=== PATIENT | male | born 1975 | race Native Hawaiian/Other Pacific Islander ===

== ENCOUNTER 2018-07-16 14:33 | Inpatient (IN) | payer OTHER ==
[~2018-07-16] VITALS: Ht 175.3 cm; Wt 97.3 kg
[2018-07-16] VITALS (11 sets, daily range): BP systolic 85–122; BP diastolic 39–75; TEMP 97.9–100.8; Ht 175.3 cm; Wt 97.3 kg
[2018-07-16 15:31] LABS: PLATELET COUNT 370 K/uL (142-355)
[2018-07-16 15:43] LABS: POTASSIUM 3.6 mmol/L (3.6-5.2)
[2018-07-17] VITALS (25 sets, daily range): BP systolic 85–127; BP diastolic 36–79; TEMP 98.9–102
[2018-07-17 05:28] LABS: PLATELET COUNT 342 K/uL (142-355)
[2018-07-17 05:45] LABS: POTASSIUM 3.3 mmol/L (3.6-5.2)
[2018-07-18] VITALS (18 sets, daily range): BP systolic 99–131; BP diastolic 58–85; TEMP 97.8–99
[2018-07-18 05:44] LABS: PLATELET COUNT 361 K/uL (142-355)
[2018-07-18 06:11] LABS: POTASSIUM 3.5 mmol/L (3.6-5.2)
[2018-07-19] VITALS: BP 128/75; TEMP 98.7
[2018-07-19 04:00] VITALS: BP 115/74; TEMP 98.1
[2018-07-19 06:22] LABS: PLATELET COUNT 488 K/uL (142-355)
[2018-07-19 06:37] LABS: POTASSIUM 3.5 mmol/L (3.6-5.2)
[2018-07-19 08:00] VITALS: BP 129/70; TEMP 98.2
[2018-07-19 12:00] VITALS: BP 132/72; TEMP 98.2
[2018-07-19 16:00] VITALS: BP 128/72; TEMP 98
[2018-07-19 20:00] VITALS: BP 121/74; TEMP 98.7
[2018-07-20] VITALS: BP 123/66; TEMP 98.7
[2018-07-20 04:00] VITALS: BP 122/70; TEMP 98.7
[2018-07-20 06:59] LABS: POTASSIUM 3.9 mmol/L (3.6-5.2)
[2018-07-20 08:00] VITALS: BP 117/65; TEMP 97.9
[2018-07-20 08:16] LABS: PLATELET COUNT 546 K/uL (142-355)
[2018-07-20 12:00] VITALS: BP 115/67; TEMP 98
[2018-07-20 16:00] VITALS: BP 117/70; TEMP 98.3
[2018-07-20 20:00] VITALS: BP 129/73; TEMP 98.3
[2018-07-21] VITALS: BP 140/79; TEMP 98.1
[2018-07-21 04:00] VITALS: BP 130/78; TEMP 98.3
[2018-07-21 06:46] LABS: PLATELET COUNT 586 K/uL (142-355)
[2018-07-21 06:54] LABS: POTASSIUM 4.3 mmol/L (3.6-5.2)
[2018-07-21 08:00] VITALS: BP 131/87; TEMP 98
[2018-07-21] MEDS ORDERED: 904272561 PO (11:41)
[2018-07-21 12:00] VITALS: BP 145/84; TEMP 97.7
== END 2018-07-21 15:05 | disposition home or self-care (01) | DRG 603 ==
LOC: ED 14:33 → ICU 16:10 → MED/SURG 07-18 16:12
PROVIDERS: Family Medicine; ADMIT Family Medicine
PROC: 05HY33Z Insertion of Infusion Device into Upper Vein, Percutaneous Approach (ICD-10-PCS; principal; 2018-07-19)
DX: L03.113 Cellulitis of right upper limb (principal); E87.6 Hypokalemia; F15.10 Other stimulant abuse, uncomplicated; R73.9 Hyperglycemia, unspecified; R74.8 Abnormal levels of other serum enzymes
CPT/HCPCS: 36415; 80048; 80053; 80074; 80202; 80307; 83605; 85007; 85027; 85651; 86140; 87040; 87070; 87077; 87185; 87186; 87205; 96361; 96365; 99284; C1751; J0696; J1650; J2001; J2930; J3370; J3490; Q9963